=== PATIENT | male | born 1985 | race Caucasian/White ===

== ENCOUNTER 2017-07-14 14:56 | Emergency (ER) | payer OTHER ==
[2017-07-14 15:22] VITALS: BP 135/76; PULSE 82; TEMP 98.5; BMI 33.0
--- NOTE | 2017-07-14 16:05 | PDOC ---
History of Present Illness - General Chief Complaint: Injury Stated Complaint: LEFT SHOULDER/ELBOW-[employer] Time Seen by Provider: 07/14/17 16:04 History Source: Patient Exam Limitations: No Limitations - History of Present Illness Initial Comments: CHIEF COMPLAINT: 31 y/o afebrile male with no significant PMH c/o left shoulder injury s/p work fall. 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 The patient states since then his left upper arm, shoulder and elbow are sore. He denies decreased ROM and numbness of left hand. Vital signs on arrival are within normal limits. REVIEW OF SYSTEMS: GENERAL/CONSTITUTIONAL: No fever/chills. No weakness. No weight change. MUSCULOSKELETAL: +left shoulder, arm and elbow pain. No neck or back pain. SKIN: No rash or easy bruising. NEUROLOGIC: No headache, vertigo, loss of consciousness, or loss of sensation. PHYSICAL EXAM: VITAL_SIGNS: within normal limits GENERAL_APPEARANCE: alert, cooperative, no obvious discomfort. MENTAL_STATUS: speech clear, oriented X 3, responds appropriately to questions. NEURO: motor intact and sensory intact in injured extremity. EXTREMITIES: Full ROM of left shoulder without pain. Full flexion, extension, pronation and supination of left forearm. Minimal TTP of left AC joint and left medial elbow joint. No edema, erythema, crepitus or deformities of affected extremity. 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 SKIN: warm, dry, good color. Past History - Past Medical History Allergies/Adverse Reactions: Allergies Allergy/AdvReac Type Severity Reaction Status Date / Time No Known Allergies Allergy Verified 07/14/17 15:03 Home Medications: Ambulatory Orders Levothyroxine [Synthroid -] 112 mcg PO DAILY 07/14/17 Thyroid Disease: Yes (HYPO) - Immunization History Immunization Up to Date: Yes - Psycho/Social/Smoking Cessation Hx Anxiety: No Suicidal Ideation: No Smoking History: Never smoked Have you smoked in the past 12 months: No Information on smoking cessation initiated: No Hx Alcohol Use: No Drug/Substance Use Hx: No Substance Use Type: Alcohol *Physical Exam - Vital Signs Last Vital Signs Temp Pulse Resp BP Pulse Ox 98.5 F 82 18 135/76 96 07/14/17 15:04 07/14/17 15:04 07/14/17 15:04 07/14/17 15:04 07/14/17 15:04 Medical Decision Making - Medical Decision Making A/P: 31 y/o male with left rotator cuff strain. Offered him motrin but he refused. Will discharge to home with RICE instructions, instructions to take Motrin if needed for pain, and instructions to f/u with his orthopedic doctor within 1 week. Pt was instructed to return to the ER with any worsening or concerning symptoms. The patient verbalizes understanding of all instructions, has no further questions and is awaiting discharge. *DC/Admit/Observation/Transfer Diagnosis at time of Disposition: Rotator cuff strain Qualifiers: Encounter type: initial encounter Laterality: left Qualified Code(s): S46.012A - Strain of muscle(s) and tendon(s) of the rotator cuff of left shoulder, initial encounter Elbow joint pain Qualifiers: Laterality: left Qualified Code(s): M25.522 - Pain in left elbow - Discharge Dispostion Disposition: HOME Condition at time of disposition: Good - Referrals Referrals: Neftali Reyes MD [Primary Care Provider] - - Patient Instructions Printed Discharge Instructions: DI for Rotator Cuff Injury, How To Perform RICE (Rest, Ice, Compress, Elevate), DI for Elbow Pain Additional Instructions: Discharge Instructions: -Follow RICE instructions -Keep your shoulder mobile -Take 800mg of Motrin every 8 hours with food to help with pain if needed -Follow up with your orthopedic doctor within 2 weeks -Return to the ER with any worsening or concerning symptoms. - Post Discharge Activity Work/School Note: Back to Work
== END 2017-07-14 16:15 | disposition home or self-care (01) ==
LOC: JERFT 14:56
DX: S46.012A Strain of muscle(s) and tendon(s) of the rotator cuff of left shoulder, initial encounter (principal); M25.522 Pain in left elbow; Y35.491A Legal intervention involving other sharp objects, law enforcement official injured, initial encounter; Y93.89 Activity, other specified; Y92.89 Other specified places as the place of occurrence of the external cause; Y99.0 Civilian activity done for income or pay; E03.9 Hypothyroidism, unspecified
CPT/HCPCS: 99281-25

== ENCOUNTER 2018-05-20 11:12 | Day surgery (SDC) | payer OTHER ==
[2018-05-19 14:38] VITALS: BMI 33.0
[2018-05-20 11:59] LABS: HEMOGLOBIN 15.4 GM/dL (11.7-16.9); MCH 28.7 pg (25.7-33.7); MCHC 33.6 g/dl (32.0-35.9); MEAN CELL VOLUME 85.5 fl (80-96); MEAN PLT VOLUME 7.5 fl (7.5-11.1); PLATELET COUNT 291 K/MM3 (134-434); RBC 5.38 M/mm3 (4.00-5.60); RDW 13.9 % (11.9-15.9); WHITE BLOOD COUNT 6.4 K/mm3 (4.0-10.0)
[2018-05-20 12:30] LABS: ANION GAP 5 (8-16); BLOOD UREA NITROGEN 12 mg/dL (7-18); CALCIUM 8.7 mg/dL (8.5-10.1); CHLORIDE 108 mmol/L (98-107); CO2 30 mmol/L (21-32); CREATININE 1.2 mg/dL (0.7-1.3); GLUCOSE,RANDOM 85 mg/dL (74-106); MAGNESIUM 1.9 mg/dL (1.8-2.4); SODIUM 143 mmol/L (136-145)
[2018-05-20] MEDS ORDERED: ONDANSETRON 4 MG/2 ML VIAL ONE (12:41)
[2018-05-20] MEDS ORDERED: PROPOFOL 20 ML ONE ×3 (12:41)
[2018-05-20 13:13] VITALS: TEMP 97.8
[2018-05-20 13:29] VITALS: PULSE 60
[2018-05-20 13:56] VITALS: BP 108/62
--- NOTE | 2018-05-21 17:28 | PATH ---
Surgical Pathology Report Patient Name: NILO BRAY [facility]. Rec. #: [id number] /Age/Gender: 1985 (Age: 32) / M Account: [id number] Location: [facility]-ENDOSCOPY Taken: 05/20/2018 Received: 05/20/2018 Reported: 05/21/2018 Physicians: Sanjay Rosales D.O. Specimen(s) Received A: BX DESCENDING COLON B: BX SIGMOID C: BX RECTUM Clinical History Diarrhea Postoperative diagnosis: Same Final Diagnosis A. DESCENDING COLON, BIOPSY: COLONIC MUCOSA WITH MILD CHRONIC INFLAMMATION AND LYMPHOID AGGREGATE. B. SIGMOID, BIOPSY: COLONIC MUCOSA WITH ACUTE INFLAMMATION IN THE LAMINA PROPRIA, ACUTE CRYPTITIS, AND LYMPHOID AGGREGATES. C. RECTUM, BIOPSY: COLONIC MUCOSA WITH ACUTE INFLAMMATION IN THE LAMINA PROPRIA AND ACUTE CRYPTITIS. Electronically Signed Bharat Cui M.D. Gross Description A. Received in formalin, labeled "biopsy descending colon" are 4 martinez, irregular portions of soft tissue ranging from 0.1-0.3 cm. in greatest dimension. The specimens are submitted in toto in one cassette. B. Received in formalin, labeled "biopsy sigmoid" are 3 martinez, irregular portions of soft tissue ranging from 0.1-0.3 cm. in greatest dimension. The specimens are submitted in toto in one cassette. C. Received in formalin, labeled "biopsy rectum" are 3 martinez, irregular portions of soft tissue averaging 0.3 cm. in greatest dimension. The specimens are submitted in toto in one cassette. /05/20/2018 [facility]05/20/2018
== END 2018-05-20 13:57 | disposition home or self-care (01) ==
LOC: JASU-ENDO 11:12
PROVIDERS: ATTEND Internal Medicine Gastroenterology
PROC: 0DBN8ZX Excision of Sigmoid Colon, Via Natural or Artificial Opening Endoscopic, Diagnostic (ICD-10-PCS; 2018-05-20)
PROC: 0DBP8ZX Excision of Rectum, Via Natural or Artificial Opening Endoscopic, Diagnostic (ICD-10-PCS; 2018-05-20)
PROC: 0DBM8ZX Excision of Descending Colon, Via Natural or Artificial Opening Endoscopic, Diagnostic (ICD-10-PCS; principal; 2018-05-20 13:00)
DX: R19.7 Diarrhea, unspecified (principal); K64.8 Other hemorrhoids
CPT/HCPCS: 36415; 80048; 83735; 85027; 86140; 87045; 87046; 87177; 87209; 88305-TC

== ENCOUNTER 2018-05-27 11:16 | Day surgery (SDC) | payer OTHER ==
[2018-05-27 11:32] VITALS: BMI 33.0
[2018-05-27] MEDS ORDERED: LIDOCAINE HCL/PF 2% SDV 5ML VIAL ONE (11:45)
[2018-05-27] MEDS ORDERED: ONDANSETRON 4 MG/2 ML VIAL ONE (11:45)
[2018-05-27] MEDS ORDERED: PROPOFOL 20 ML ONE ×2 (11:45)
[2018-05-27 12:28] VITALS: TEMP 97.8
[2018-05-27 13:30] LABS: BASO % 0.4 % (0-2.0); EOS % 2.7 % (0-4.5); HEMATOCRIT 46.9 % (35.4-49); HEMOGLOBIN 15.5 GM/dL (11.7-16.9); LYMPH % 20.6 % (8-40); MCH 28.6 pg (25.7-33.7); MEAN CELL VOLUME 86.9 fl (80-96); MEAN PLT VOLUME 7.9 fl (7.5-11.1); MONO % 10.2 % (3.8-10.2); NEUT % 66.1 % (42.8-82.8); PLATELET COUNT 271 K/MM3 (134-434); RDW 13.8 % (11.9-15.9); WHITE BLOOD COUNT 6.7 K/mm3 (4.0-10.0)
[2018-05-27 13:34] VITALS: BP 113/67; PULSE 65
[2018-05-28 06:06] LABS: HBSAG SCREEN Negative (Negative); HEP B CORE AB, TOT Negative (Negative)
[2018-05-29 10:09] LABS: ENTAMOEBA HISTOLYTICA ANTIBODY Negative (Negative)
[2018-05-30 14:18] LABS: ATYPICAL pANCA <1:20 titer (Neg:<1:20)
--- NOTE | 2018-05-30 16:04 | PATH ---
Surgical Pathology Report Patient Name: NILO BRAY [facility]. Rec. #: [id number] /Age/Gender: 1985 (Age: 32) / M Account: [id number] Location: U-ENDOSCOPY Taken: 05/27/2018 Received: 05/27/2018 Reported: 05/30/2018 Physicians: Sanjay Rosales D.O. Specimen(s) Received A: BX ILEUM B: BX RIGHT COLON C: BX TRANSVERSE COLON D: BX DESCENDING COLON E: BX SIGMOID F: BX RECTAL ULCERS G: BX RECTUM Clinical History Diarrhea Postoperative diagnosis: Colitis, r/o IBD, r/o CMV Final Diagnosis A. ILEUM, BIOPSY: FOCAL ACTIVE ILEITIS. B. RIGHT COLON, BIOPSY: FOCAL ACTIVE COLITIS. (SEE NOTE) C. TRANSVERSE COLON, BIOPSY: FOCAL ACTIVE COLITIS. (SEE NOTE) D. DESCENDING COLON, BIOPSY: FOCAL ACTIVE COLITIS. (SEE NOTE) E. SIGMOID, BIOPSY: FOCAL ACTIVE COLITIS. (SEE NOTE) F. RECTAL ULCERS, BIOPSY: FOCAL ACTIVE COLITIS/PROCTITIS. (SEE NOTE) G. RECTUM, BIOPSY: FOCAL ACTIVE COLITIS/PROCTITIS. (SEE NOTE) NOTE: These features are non-specific and may be seen in association with acute self-limited/infectious colitis or as an early manifestation of inflammatory bowel disease. Clinical correlation and follow-up is recommended. CMV immunostains (performed and interpreted at [place], [place]: [id number] on specimens B, C, D, E, F, G are negative). Electronically Signed Jazmin Rm M.D. Gross Description A. Received in formalin, labeled "biopsy terminal ileum" are 4 martinez, irregular portions of soft tissue ranging from 0.1-0.5 cm. in greatest dimension. The specimens are submitted in toto in one cassette. B. Received in formalin, labeled "biopsy right colon" are 3 martinez, irregular portions of soft tissue ranging from 0.2-0.3 cm. in greatest dimension. The specimens are submitted in toto in one cassette. C. Received in formalin, labeled "biopsy transverse colon" are 4 martinez, irregular portions of soft tissue ranging from 0.1-0.4 cm. in greatest dimension. The specimens are submitted in toto in one cassette. D. Received in formalin, labeled "biopsy descending colon" are 3 martinez, irregular portions of soft tissue ranging from 0.3-0.8 cm. in greatest dimension. The specimens are submitted in toto in one cassette. E. Received in formalin, labeled "biopsy sigmoid colon" are 2 martinez, irregular portions of soft tissue measuring 0.3 and 0.4 cm. in greatest dimension. The specimens are submitted in toto in one cassette. F. Received in formalin, labeled "biopsy rectal ulcers" are 3 martinez, irregular portions of soft tissue ranging from 0.2-0.3 cm. in greatest dimension. The specimens are submitted in toto in one cassette. G. Received in formalin, labeled "biopsy rectum" are 3 martinez, irregular portions of soft tissue ranging from 0.1-0.3 cm. in greatest dimension. The specimens are submitted in toto in one cassette. 05/27/2018 [facility]05/27/2018
== END 2018-05-27 13:20 | disposition home or self-care (01) ==
LOC: JASU-ENDO 11:16
PROVIDERS: ATTEND Internal Medicine Gastroenterology
PROC: 0DBL8ZX Excision of Transverse Colon, Via Natural or Artificial Opening Endoscopic, Diagnostic (ICD-10-PCS; 2018-05-27)
PROC: 0DBN8ZX Excision of Sigmoid Colon, Via Natural or Artificial Opening Endoscopic, Diagnostic (ICD-10-PCS; 2018-05-27)
PROC: 0DBP8ZX Excision of Rectum, Via Natural or Artificial Opening Endoscopic, Diagnostic (ICD-10-PCS; 2018-05-27)
PROC: 0DBB8ZX Excision of Ileum, Via Natural or Artificial Opening Endoscopic, Diagnostic (ICD-10-PCS; 2018-05-27)
PROC: 0DBM8ZX Excision of Descending Colon, Via Natural or Artificial Opening Endoscopic, Diagnostic (ICD-10-PCS; 2018-05-27)
PROC: 0DBK8ZX Excision of Ascending Colon, Via Natural or Artificial Opening Endoscopic, Diagnostic (ICD-10-PCS; principal; 2018-05-27 12:30)
DX: R19.7 Diarrhea, unspecified (principal); K52.89 Other specified noninfective gastroenteritis and colitis; K62.89 Other specified diseases of anus and rectum; E03.9 Hypothyroidism, unspecified; K62.6 Ulcer of anus and rectum; K64.8 Other hemorrhoids
CPT/HCPCS: 36415; 85025; 86256; 86480; 86671; 86704; 86706; 86708; 86753; 87177; 87209; 87340; 88305-TC

== ENCOUNTER 2018-10-28 09:56 | Emergency (ER) | payer OTHER ==
[2018-10-28 10:08] VITALS: TEMP 98.7; BMI 33.0
--- NOTE | 2018-10-28 11:01 | PDOC ---
History of Present Illness <Lili Agosto - Last Filed: 10/28/18 12:30> - General History Source: Patient - History of Present Illness Occurred: reports: this morning Pain Location: reports: upper extremity Method of Injury: Yes: direct blow <Lakeshia Lizarraga - Last Filed: 10/28/18 13:40> <Alex Fields - Last Filed: 10/28/18 13:52> - General Chief Complaint: Injury Stated Complaint: INJURY,RT HAND-[employer] Time Seen by Provider: 10/28/18 10:32 Past History <Lili Agosto - Last Filed: 10/28/18 12:30> - Past Medical History Anemia: No Asthma: No Cancer: No Cardiac Disorders: No CVA: No COPD: No CHF: No Dementia: No Diabetes: No GI Disorders: Yes (diarrhea) Disorders: No HTN: No Hypercholesterolemia: No Liver Disease: No Seizures: No Thyroid Disease: Yes (HYPO) - Immunization History Immunization Up to Date: Yes - Suicide/Smoking/Psychosocial Hx Smoking History: Never smoked Have you smoked in the past 12 months: No Hx Alcohol Use: No Drug/Substance Use Hx: No Substance Use Type: None Hx Substance Use Treatment: No <Lakeshia Lizarraga - Last Filed: 10/28/18 13:40> <Alex Fields - Last Filed: 10/28/18 13:52> - Past Medical History Allergies/Adverse Reactions: Allergies Allergy/AdvReac Type Severity Reaction Status Date / Time No Known Allergies Allergy Verified 10/28/18 10:05 Home Medications: Ambulatory Orders Levothyroxine [Synthroid -] 112 mcg PO DAILY 07/14/17 Review of Systems - Review of Systems Musculoskeletal: Yes: Joint Pain, Joint Swelling <Lakeshia Lizarraga - Last Filed: 10/28/18 13:40> *Physical Exam - Vital Signs Last Vital Signs Temp Pulse Resp BP Pulse Ox 98.7 F 100 H 18 153/78 97 10/28/18 10:05 10/28/18 10:05 10/28/18 10:05 10/28/18 10:05 10/28/18 10:05 <Lili Agosto - Last Filed: 10/28/18 12:30> - Vital Signs Last Vital Signs Temp Pulse Resp BP Pulse Ox 98.7 F 100 H 18 153/78 97 10/28/18 10:05 10/28/18 10:05 10/28/18 10:05 10/28/18 10:05 10/28/18 10:05 - Physical Exam General Appearance: Yes: Appropriately Dressed. No: Apparent Distress HEENT: positive: Normal Voice Neck: positive: Supple Respiratory/Chest: negative: Respiratory Distress Extremity: positive: Swelling (significant swelling diffusely to R thumb/thenar eminence, FROMI to thumb), Other (no ttp/deformity to R shoulder, FROMI) Integumentary: positive: Dry, Warm Neurologic: positive: Fully Oriented, Alert, Normal Mood/Affect <Lakeshia Lizarraga - Last Filed: 10/28/18 13:40> - Vital Signs Last Vital Signs Temp Pulse Resp BP Pulse Ox 98.7 F 92 H 18 128/73 98 10/28/18 10:05 10/28/18 13:49 10/28/18 13:49 10/28/18 13:49 10/28/18 13:49 <Alex Fields - Last Filed: 10/28/18 13:52> Moderate Sedation - Procedure Monitoring Vital Signs: Procedure Monitoring Vital Signs Temperature 98.7 F 10/28/18 10:05 Pulse Rate 100 H 10/28/18 10:05 Respiratory Rate 18 10/28/18 10:05 Blood Pressure 153/78 10/28/18 10:05 O2 Sat by Pulse Oximetry (%) 97 10/28/18 10:05 <Lili Agosto - Last Filed: 10/28/18 12:30> - Procedure Monitoring Vital Signs: Procedure Monitoring Vital Signs Temperature 98.7 F 10/28/18 10:05 Pulse Rate 100 H 10/28/18 10:05 Respiratory Rate 18 10/28/18 10:05 Blood Pressure 153/78 10/28/18 10:05 O2 Sat by Pulse Oximetry (%) 97 10/28/18 10:05 <Lakeshia Lizarraga - Last Filed: 10/28/18 13:40> - Procedure Monitoring Vital Signs: Procedure Monitoring Vital Signs Temperature 98.7 F 10/28/18 10:05 Pulse Rate 92 H 10/28/18 13:49 Respiratory Rate 18 10/28/18 13:49 Blood Pressure 128/73 10/28/18 13:49 O2 Sat by Pulse Oximetry (%) 98 10/28/18 13:49 <Alex Fields - Last Filed: 10/28/18 13:52> Procedures - Splinting Splint Location: Right: Wrist Hand-Made Type: orthoglass Splint Type: Yes: Thumb Spica Post-Proc Neuro Vasc Exam: normal Jermaine Bandage: 4" (2) Sling: Yes Complications: No Post splint xray: No Progress: 10/28/18 13:43 Performed by medical student Ronal. I was there for entire procedure <Lakeshia Lizarraga - Last Filed: 10/28/18 13:40> ED Treatment Course - RADIOLOGY Radiology Studies Ordered: Category Date Time Status HAND- RIGHT [RAD] Stat Radiology 10/28/18 10:34 Taken <Lakeshia Lizarraga - Last Filed: 10/28/18 13:40> Medical Decision Making - Medical Decision Making 11am Call placed to Dr. Chang's office, made aware he is with patients, awaiting call back. 11:30am Second call placed to Dr. Chang's office, made aware he is with patients, awaiting call back. 12pm Third call placed to Dr. Chang's office, made aware he is with patients, awaiting call back. 12:15pm Fourth call placed to Dr. Chang's office, case discussed with Dr. Fields <Lili Agosto - Last Filed: 10/28/18 12:30> - Medical Decision Making 10/28/18 11:07 33-year-old male, no significant history, works as [employer], here with R thumb pain and swelling. Patient states he responded to a call about a individual this a.m. 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 Also reports R shoulder pain See exam R/o fx -xray -declines pain meds 10/28/18 12:10 Fx to base of R thumb, C/F possible [place] fx. Ortho c/s pending 10/28/18 13:[address] Chang who is recommending thumb spica and elevation. Wants pt to follow up with him in office. Patient informed of plan and now reports that he has another orthopedic doctor at [facility], and is planning on following up there. I instructed patient to call, M.D., tomorrow for f/u 10/28/18 13:41 Pt s/p thumb splint by medical student, Tony Villeda, with me present for entire procedure. Pt given splint to assist w/ elevation <Lakeshia Lizarraga - Last Filed: 10/28/18 13:40> *DC/Admit/Observation/Transfer - Attestations Scribe Attestion: 10/28/18 12:32 Documentation prepared by Lili Agosto, acting as remote medical coder for Alex Fields MD. <Lili Agosto - Last Filed: 10/28/18 12:30> <Lakeshia Lizarraga - Last Filed: 10/28/18 13:40> - Discharge Dispostion Decision to Admit order: No <Alex Fields - Last Filed: 10/28/18 13:52> Diagnosis at time of Disposition: Thumb fracture Qualifiers: Encounter type: initial encounter Fracture type: closed Phalanx: proximal Fracture alignment: displaced Laterality: right Qualified Code(s): S62.511A - Displaced fracture of proximal phalanx of right thumb, initial encounter for closed fracture - Discharge Dispostion Disposition: HOME Condition at time of disposition: Improved - Referrals Referrals: Neftali Reyes MD [Primary Care Provider] - - Patient Instructions Printed Discharge Instructions: Shoulder Sprain, Finger Fracture Additional Instructions: You have a fracture to the base of your right thumb. You were told that you most likely will need an operation. You were placed in a thumb spica in the ER and told to elevate extremity at home You have stated that you do not want to follow-up with Dr. Chang of orthopedics here at [facility], that you have an orthopedic at [facility] that you will be following with. Please call that doctor tomorrow morning for follow-up appointment Take motrin or tylenol for pain as needed - Post Discharge Activity Forms/Work/School Notes: Back to Work
[2018-10-28 13:50] VITALS: BP 128/73; PULSE 92
== END 2018-10-28 13:57 | disposition home or self-care (01) ==
LOC: JER 09:56
PROC: 2W3CX1Z Immobilization of Right Lower Arm using Splint (ICD-10-PCS; principal; 2018-10-28)
DX: S62.511A Displaced fracture of proximal phalanx of right thumb, initial encounter for closed fracture (principal); W20.8XXA Other cause of strike by thrown, projected or falling object, initial encounter; Y93.89 Activity, other specified; Y92.89 Other specified places as the place of occurrence of the external cause; Y99.0 Civilian activity done for income or pay
CPT/HCPCS: 73130-TC-RT-FY; 99282-25

== ENCOUNTER 2021-05-21 11:27 | Emergency (ER) | payer OTHER ==
[2021-05-21 12:13] VITALS: BP 141/75; PULSE 50; TEMP 98.6; BMI 31.0
== END 2021-05-21 12:31 | disposition home or self-care (01) ==
LOC: FER 11:27
DX: S60.221A Contusion of right hand, initial encounter (principal)
CPT/HCPCS: 73130-TC-RT-FY; 99283-25

== ENCOUNTER 2021-10-25 20:53 | Emergency (ER) | payer OTHER ==
[2021-10-25 21:21] VITALS: BP 135/66; PULSE 63; TEMP 99; BMI 31.5
== END 2021-10-25 21:53 | disposition home or self-care (01) ==
LOC: FER 20:53
DX: S09.90XA Unspecified injury of head, initial encounter (principal); S16.1XXA Strain of muscle, fascia and tendon at neck level, initial encounter; W19.XXXA Unspecified fall, initial encounter; Y92.9 Unspecified place or not applicable
CPT/HCPCS: 72050-TC-FY; 99284-25

== ENCOUNTER 2022-03-30 16:49 | Emergency (ER) | payer OTHER ==
[2022-03-30 16:55] VITALS: BP 122/77; PULSE 78; TEMP 99; BMI 31.5
[2022-03-30] MEDS ORDERED: LIDOCAINE 5% TOPICAL PATCH TP ONE (17:09)
[2022-03-30] MEDS ORDERED: LIDOCAINE 5% TOPICAL PATCH ONE (17:14)
[2022-03-30] MEDS ORDERED: LIDOCAINE PATCH REMOVAL MC SCH (22:00)
== END 2022-03-30 17:21 | disposition home or self-care (01) ==
LOC: FER 16:49
DX: M54.50 Low back pain, unspecified (principal)
CPT/HCPCS: 99283-25